=== PATIENT | female | born 1995 | race Caucasian/White ===

== ENCOUNTER 2024-09-01 19:20 | Emergency (ER) | payer OTHER, SELFPAY ==
[2024-09-01 19:26] VITALS: BP 126/88; PULSE 69; TEMP 37.2; O2SAT 97; BMI 26.8
[2024-09-01 19:42] LABS: Bilirubin Urine NEGATIVE (NEGATIVE); Blood Urine LARGE (NEGATIVE); Clarity Urine CLOUDY (CLEAR); Color Urine LT. YELLOW (YELLOW); Glucose Urine UA NEGATIVE (NEGATIVE); HCG Qualitative Urine* NEGATIVE (NEGATIVE); Internal Control Within Normal Limits; Ketones Urine NEGATIVE (NEGATIVE); Leukocyte Esterase Urine MODERATE (NEGATIVE); Nitrite Urine POSITIVE (NEGATIVE); Protein Urine >=300 mg/dL (NEG/TRACE); Urobilinogen Urine 0.2 EU/dL (0.2-1.0)
--- NOTE | 2024-09-01 19:52 | ED_ITS ---
HPI HPI - General Adult General Chief complaint: Urogenital-Female Stated complaint: UTI Time Seen by Provider: 09/01/24 19:28 Source: patient Mode of arrival: walk-in History of Present Illness HPI narrative: 28-year-old female presents here with chief complaint of dysuria and increased urinary frequency. Patient states she has had the symptoms for the past 3 days. She has tried [id number]-[id number] Azo generic brand without any relief. Denies fevers chills or vomiting. She states she does have increased burning with urination today and some pain that wraps around her lower abdomen area. Patient denies a history of kidney stones. She is not febrile or nauseous. Patient looks well. Denies history of known or concern for STI. Related Data Home Medications ?Medication ?Instructions ?Recorded ?Confirmed phenazopyridine 95 mg tablet (Azo 95 mg PO TID PRN garo n 09/01/24 09/01/24 Urinary Pain Relief) Previous Rx's ?Medication ?Instructions ?Recorded cephalexin 500 mg capsule 500 mg PO BID 10 days #20 ca ps 09/01/24 phenazopyridine 100 mg tablet 100 mg PO Q8H 5 doses #5 tabs 09/01/24 (Pyridium) Allergies Allergy/AdvReac Type Severity Reaction Status Date / Time No Known Drug Allergies Allergy Verified 09/01/24 19:26 Review of Systems ROS Status of ROS 10 or more systems reviewed and unremark able except as noted in history and below PFSH PFSH Social History Little interest or pleasure in doing things: not at all Feeling down, depressed, or hopeless: not at all Exam Narrative Exam Narrative: All Systems are negative except as noted/marked.All systems reviewed and otherwise negative Nurses note and vital signs reviewed and patient is not hypoxic. General: The patient appears well and in no apparent distress. Patient is resting comfortably on cart. Skin: Warm, dry, no pallor noted. There is no rash noted. Head: Normocephalic, atraumatic Eye: Normal conjunctiva, no drainage, EOMI. PERRL Ears, Nose, Mouth, and Throat: oral mucosa is moist. Nares patent. Mouth without vesicles. Ear canals patent. Tm's without Erythema Cardiovascular: Regular Rate and Rhythm Respiratory: Patient is in no distress, no accessory muscle use, lungs are clear to auscultation, no wheezing, rales or rhonchi Back: non-tender, no CVA tenderness bilaterally to percussion. GI: Normal bowel sounds, no tenderness to palpation, no masses appreciated. No rebound, guarding, or rigidity noted. Musculoskeletal: The patient has no evidence of calf tenderness, no pitting edema, symmetrical pulses noted bilaterally Neurological: A&O x4, normal speech Psychiatric: Cooperative Constitutional Vital Signs, click to edit/add: Last Vital Signs Temp 98.9 F 09/01/24 19:26 Pulse 69 09/01/24 19:26 Resp 16 09/01/24 19:26 BP 126/88 09/01/24 19:26 Pulse Ox 97 09/01/24 19:26 O2 Del Method Room Air 09/01/24 19:26 Course Vital Signs Vital signs: Vital Signs Temperature 98.9 F 09/01/24 19:26 Pulse Rate 69 09/01/24 19:26 Respiratory Rate 16 09/01/24 19:26 Blood Pressure 126/88 09/01/24 19:26 Pulse Oximetry 97 09/01/24 19:26 Oxygen Delivery Method Room Air 09/01/24 19:26 Temperature 98.9 F 09/01/24 19:26 Pulse Rate 69 09/01/24 19:26 Respiratory Rate 16 09/01/24 19:26 Blood Pressure 126/88 09/01/24 19:26 Pulse Oximetry 97 09/01/24 19:26 Oxygen Delivery Method Room Air 09/01/24 19:26 Medical Decision Making [facility] Narrative Medical decision making narrative: 28-year-old female presents here with chief complaint of dysuria and increased urinary frequency. Patient states she has had the symptoms for the past 3 days. She has tried [id number]-tmi-wjvhuac Azo generic brand without any relief. Denies fevers chills or vomiting. She states she does have increased burning with [place] today and some pain that wraps around her lower abdomen area. Patient denies a history of kidney stones. She is not febrile or nauseous. Patient looks well. Denies history of known or concern for STI. Patient presented with chief complaint of increased urinary frequency and burning consistent with UTI. Urinalysis is back and positive for nitrates and bacteria. She also has blood. Patient denies a known history of stones. She will be discharged home prescription for Keflex and Pyridium. I did explain to the patient if she had should develop any difficulty with urination, inability urinate or increased flank pain with nausea to return to the emergency room to rule out any kidney stones. Patient has no flank pain today. She looks well at discharge diagnose home Pyridium and Keflex Differential Diagnosis Differential Diagnosis: uti, kidney stone Medical Records Medical records reviewed: Yes I reviewed the patient's medical records Lab Data Lab results reviewed: Yes I reviewed the patient's lab results Labs: Lab Results 09/01/24 Range/Units 19:35 Urine Color Lt. yellow (YELLOW) Urine Clarity Cloudy A (CLEAR) Urine pH 7.0 (5.0-9.0) Ur Specific [place] 1.020 (1.005-1.025) Urine Protein >=300 A (NEG/TRACE) mg/dL Urine Glucose (UA) Negative (NEGATIVE) mg/dL Urine Ketones Negative (NEGATIVE) mg/dL Urine Occult Blood Large A (NEGATIVE) Urine Nitrite Positive A (NEGATIVE) Urine Bilirubin Negative (NEGATIVE) Urine Urobilinogen 0.2 (0.2-1.0) EU/dL Ur Leukocyte Esterase Moderate A (NEGATIVE) Urine RBC 20-50 A (0-2) #/HPF Urine WBC 50-75 A (NONE SEEN) #/HPF Ur Squamous Epith Cells Few A (NONE/RARE) #/LPF Urine Crystals None seen (None Seen) #/HPF Urine Bacteria Moderate A (NONE SEEN) #/HPF Urine Casts None seen (NONE SEEN) #/LPF Urine Mucus None seen (NONE SEEN) Ur [place] [place] HCG, Qual Negative (NEGATIVE) Discharge Plan Discharge Chief Complaint: Urogenital-Female Clinical Impression: Urinary tract infection Patient Disposition: Home, Self-Care Time of Disposition Decision: 19:54 Condition: Good Prescriptions / Home Meds: New cephalexin 500 mg capsule 500 mg PO BID 10 Days Qty: 20 0RF phenazopyridine [Pyridium] 100 mg tablet 100 mg PO Q8H Qty: 5 0RF No Action phenazopyridine [Azo Urinary Pain Relief] 95 mg tablet 95 mg PO TID PRN (Reason: pain) Print Language: Portuguese Instructions: Urinary Tract Infection in Women (DC) Referrals: Physician,Non-Staff, MD [Primary Care Provider] - 1 week Discharge Date/Time: 09/01/24 20:19
[2024-09-01 19:55] LABS: WBC Urine 50-75 #/HPF (NONE SEEN)
[2024-09-01 19:56] LABS: Bacteria Urine MODERATE #/HPF (NONE SEEN); Cast Seen? NONE SEEN #/LPF (NONE SEEN); Crystals Seen? None Seen #/HPF (None Seen); Mucus Urine NONE SEEN (NONE SEEN); RBC Urine 20-50 #/HPF (0-2); Squamous Epithelial Cell Urine FEW #/LPF (NONE/RARE)
[2024-09-01 19:57] LABS: Urine Culture Indicated YES-FRMC
[2024-09-01] MEDS: CEPHALEXIN 500 MG CAPSULE PO (20:00)
[2024-09-01] MEDS: PHENAZOPYRIDINE 100 MG TABLET PO (20:00)
== END 2024-09-01 20:19 | disposition home or self-care (01) ==
PROVIDERS: Physician Assistant; Emergency Provider Internal Medicine
DX: N39.0 Urinary tract infection, site not specified (principal)
CPT/HCPCS: 81001; 84703; 87086; 87088; 87186; 99283